=== PATIENT | female | born 1995 | race Caucasian/White ===

== ENCOUNTER 2017-02-09 05:06 | Inpatient (IN) | payer BC ==
[2017-02-09] MEDS ORDERED: Lidocaine 1% 50 ML MDV INJECT PRN (05:22)
[2017-02-09] MEDS ORDERED: Sodium Chloride 0.9% 10 ML Syringe FLUSH PRN (05:22)
[2017-02-09] MEDS ORDERED: Sodium Chloride 0.9% 2.5 ML Syringe FLUSH PRN (05:22)
[2017-02-09] MEDS ORDERED: Misoprostol 200 MCG Tab PO PRN (05:22)
[2017-02-09] MEDS ORDERED: Methylergonovine 0.2 MG/1 ML Amp IM PRN (05:22)
[2017-02-09] MEDS ORDERED: Carboprost Tromethamine 250 MCG/1 ML Amp IM PRN (05:22)
[2017-02-09] MEDS ORDERED: Terbutaline 1 MG/ML SDV SUBCUT PRN (05:22)
[2017-02-09] MEDS ORDERED: Water For Irrigation,Sterile 1,000 ML Container IRR PRN (05:22)
[2017-02-09] MEDS ORDERED: Butorphanol 1 MG/ML SDV IVPUSH PRN (05:22)
[2017-02-09] MEDS ORDERED: Oxytocin/Lactated Ringers 30 UNIT/500 ML BAG IV SCH ×2 (05:30)
[2017-02-09] MEDS: Lactated Ringers 1,000 ML IV SCH ×4 (05:51→12:34)
[2017-02-09] MEDS ORDERED: fentaNYL 100 MCG/2 ML SDV ONE (11:14)
[2017-02-09] MEDS ORDERED: Ropivacaine HCl/PF 100 ML ONE (11:14)
--- NOTE | 2017-02-09 11:42 | PCM.PREANE ---
Preanesthetic Assessment - Anesthesia/Transfusion/Family Hx Anesthesia History: Prior Anesthesia Without Reaction Transfusion History: No Prior Transfusion(s) - Review of Systems General: No Symptoms Pulmonary: No Symptoms Cardiovascular: No Symptoms Gastrointestinal: No symptoms Neurological: No Symptoms Other: Reports: None - Physical Assessment Height: 5 ft 3 in Weight: 165 lb ASA Class: 1 Mental Status: Alert & Oriented x3 Airway Class: Mallampati = 2 Dentition: Reports: Normal Dentition Thyro-Mental Finger Breadths: 3 Mouth Opening Finger Breadths: 3 ROM/Head Extension: Full Lungs: Clear to auscultation, Normal respiratory effort Cardiovascular: Regular Rate, Regular Rhythm - Lab Values: Laboratory Last Values WBC 10.29 K/uL (4.0-11.0) 02/09/17 05:45 RBC 4.74 M/uL (4.30-5.90) 02/09/17 05:45 Hgb 13.1 g/dL (12.0-16.0) 02/09/17 05:45 Hct 39.5 % (36.0-46.0) 02/09/17 05:45 MCV 83.3 fL (80.0-98.0) 02/09/17 05:45 MCH 27.6 pg (27.0-32.0) 02/09/17 05:45 MCHC 33.2 g/dL (31.0-37.0) 02/09/17 05:45 RDW Std Deviation 41.9 fl (28.0-62.0) 02/09/17 05:45 RDW Coeff of Herb 14 % (11.0-15.0) 02/09/17 05:45 Plt Count 185 K/uL (150-400) 02/09/17 05:45 MPV 10.40 fL (7.40-12.00) 02/09/17 05:45 Nucleated RBC % 0.0 /100WBC 02/09/17 05:45 Nucleated RBCs # 0 K/uL 02/09/17 05:45 Urine Color YELLOW 02/09/17 08:15 Urine Appearance CLEAR 02/09/17 08:15 Urine pH 6.5 (5.0-8.0) 02/09/17 08:15 Ur Specific [place] 1.020 (1.001-1.035) 02/09/17 08:15 Urine Protein NEGATIVE mg/dL (NEGATIVE) 02/09/17 08:15 Urine Glucose (UA) NEGATIVE mg/dL (NEGATIVE) 02/09/17 08:15 Urine Ketones NEGATIVE mg/dL (NEGATIVE) 02/09/17 08:15 Urine Occult Blood NEGATIVE (NEGATIVE) 02/09/17 08:15 Urine Nitrite NEGATIVE (NEGATIVE) 02/09/17 08:15 Urine Bilirubin NEGATIVE (NEGATIVE) 02/09/17 08:15 Urine Urobilinogen 0.2 EU/dL (<2.0) 02/09/17 08:15 Ur Leukocyte Esterase NEGATIVE (NEGATIVE) 02/09/17 08:15 Urine RBC 0-1 (0-2/HPF) 02/09/17 08:15 Urine WBC 0-1 (0-5/HPF) 02/09/17 08:15 Ur Epithelial Cells RARE (NONE-FEW) 02/09/17 08:15 Urine Bacteria RARE (NEGATIVE) 02/09/17 08:15 Blood Type AB POSITIVE 02/09/17 05:45 Antibody Screen NEGATIVE 02/09/17 05:45 - Allergies Allergies/Adverse Reactions: Allergies Allergy/AdvReac Type Severity Reaction Status Date / Time red dye Allergy Vomiting Verified 08/07/14 13:34 - Blood Blood Available: No Product(s) Available: None - Anesthesia Plan Free Text/Narrative:: Labor Epidural Pre-Op Medication Ordered: None - Acknowledgements Anesthesia Type Planned: Epidural Pt an Appropriate Candidate for the Planned Anesthesia: Yes Alternatives and Risks of Anesthesia Discussed w Pt/Guardian: Yes Pt/Guardian Understands and Agrees with Anesthesia Plan: Yes 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: Musculoskeletal History: Reports: Other (See Below) (some back pain and sees a chiropracter occasionally) - Past Surgical History HEENT Surgical History: Reports: Other (See Below) Other HEENT Surgeries/Procedures: wisdom tooth extraction GI Surgical History: Reports: Appendectomy - SUBSTANCE USE Smoking Status *Q: Former Smoker Tobacco Use Within Last Twelve Months: No Second Hand Smoke Exposure: No Recreational Drug Use History: No - HOME MEDS Home Medications: Home Meds Norethindrone [Nae] 08/07/14 [History] - CURRENT (IN HOUSE) MEDS Current Meds: Current Medications Butorphanol Tartrate (Stadol) 1 mg IVPUSH ASDIRECTED PRN PRN Reason: Pain Carboprost Tromethamine (Hemabate Ds) 250 mcg IM ASDIRECTED PRN PRN Reason: Post Hemorrhage Lactated Ringer's (Ringers, Lactated) 1,000 mls @ 150 mls/hr IV ASDIRECTED ROXANE Last Admin: 02/09/17 11:14 Dose: 150 mls/hr Oxytocin/Lactated Ringer's (Pitocin In Lr 30 Units/500 Ml) 30 unit in 500 mls @ 2 mls/hr IV TITRATE ROXANE; 2 MUNITS/MIN PRN Reason: Protocol Last Titration: 02/09/17 10:22 Dose: 18 munits/min, 18 mls/hr Lidocaine HCl (Xylocaine 1%) 50 ml INJECT .ONCE PRN PRN Reason: Laceration repair Methylergonovine Maleate (Methergine) 0.2 mg IM ASDIRECTED PRN PRN Reason: Post Hemorrhage Misoprostol (Cytotec) 200 mcg PO .ONCE PRN PRN Reason: Post Hemorrhage Sodium Chloride (Saline Flush) 10 ml FLUSH ASDIRECTED PRN PRN Reason: Keep Vein Open Sodium Chloride (Saline Flush) 2.5 ml FLUSH ASDIRECTED PRN PRN Reason: Keep Vein Open Sterile Water (Sterile Water For Irrigation) 1,000 ml IRR ASDIRECTED PRN PRN Reason: delivery Terbutaline Sulfate (Brethine) 0.25 mg SUBCUT ASDIRECTED PRN PRN Reason: Tacysystole Discontinued Medications Fentanyl (Sublimaze) Confirm Administered Dose 100 mcg .ROUTE .STK-MED ONE Stop: 02/09/17 11:15 Oxytocin/Lactated Ringer's (Pitocin In Lr 30 Units/500 Ml) 30 unit in 500 mls @ 999 mls/hr IV ASDIRECTED ROXANE PRN Reason: 999 MUNITS/MIN Stop: 02/09/17 06:01 Ropivacaine (Naropin 0.2%) Confirm Administered Dose 100 mls @ as directed .ROUTE .STK-MED ONE Stop: 02/09/17 11:15
[2017-02-09] MEDS ORDERED: oxyCODONE 5 MG Tab PO PRN (15:04)
[2017-02-09] MEDS ORDERED: Bisacodyl 10 MG Supp RECTAL PRN (15:04)
[2017-02-09] MEDS ORDERED: Benzocaine/Menthol 20%-0.5% Spray 78 GM Cannister TOP PRN (15:04)
[2017-02-09] MEDS ORDERED: Lanolin 100% Cream 7 GM Tube TOP PRN (15:04)
[2017-02-09] MEDS ORDERED: Ibuprofen 400 MG Tab PO PRN (15:04)
[2017-02-09] MEDS ORDERED: Witch Hazel Medicated Pads 40/Jar TOP PRN (15:04)
[2017-02-09] MEDS ORDERED: Docusate Sodium 100 MG Cap PO PRN (15:04)
--- NOTE | 2017-02-09 17:02 | PCM48HPAN ---
Post Anesthesia Note - EVALUATION WITHIN 48HRS OF ANESTHETIC Vital Signs in Normal Range: Yes Patient Participated in Evaluation: Yes Respiratory Function Stable: Yes Airway Patent: Yes Cardiovascular Function Stable: Yes Hydration Status Stable: Yes Pain Control Satisfactory: Yes Nausea and Vomiting Control Satisfactory: Yes Mental Status Recovered: Yes
[2017-02-09] MEDS: Ibuprofen 800 MG Tab PO PRN (17:29)
[2017-02-09] MEDS: Acetaminophen 500 MG Tab PO PRN (21:10)
--- NOTE | 2017-02-09 23:23 | OR ---
SURGEON: Belem Doll M.D. DATE OF PROCEDURE: 02/09/2017 Delivery note. PREOPERATIVE DIAGNOSES: 1. Forty week intrauterine . 2. Elective induction of labor. POSTOPERATIVE DIAGNOSES: 1. Forty week intrauterine . 2. Elective induction of labor. PROCEDURE: Spontaneous vaginal delivery, first-degree midline laceration repaired. ANESTHESIA: Epidural. COMPLICATIONS: None. ESTIMATED BLOOD LOSS: 300 mL. FINDINGS: Term male, score 8 at 1 minute, 9 at 5 minute. Weight of 3320 g. Spontaneous delivery, intact placenta, 3-vessel cord. DISPOSITION: Infant to nursery, mom in LDRP, stable. DESCRIPTION OF PROCEDURE: Jo is a 21-year-old, G2, P1, at 40 weeks' gestational age, who presented on the morning of 02/09/2017 for elective induction of labor due to term gestation. On initial examination, she was found to be 2 cm, 60% effaced, -3 station. She was admitted, routine labs were drawn. IV hydration was initiated. NST reactive, category one heart tones, therefore, she was initiated on Pitocin. Shortly after 10:00 a.m., the patient underwent amniotomy, clear fluid was returned. She became increasingly uncomfortable, underwent regional anesthesia in the from of epidural, became more comfortable. Shortly before 1:00 p.m., she was found to be 4 to 5 cm, 80% effaced, -2 station. heart tones 140 with variability and within approximately 1 and 1-1/2 hour, she was able to progress to complete 100% effaced, +3 station. I was called for delivery. Upon my arrival, the patient was placed in modified dorsal lithotomy position. She was prepped and draped in the usual aseptic manner. With the next contraction, able to push and deliver infant's head atraumatically, spontaneously, followed by anterior shoulder, posterior shoulder, main body without difficulty. The 's oropharynx and nares bulb suctioned. Cord was clamped x2 and cut. was handed off to his mother with attending nursing staff at her side. Cord arterial, cord venous, cord blood sampling was obtained. Light suprapubic pressure was applied while 30 units of Pitocin was delivered in 500 mL of IV fluid. Upon inspection of cervix, vaginal sidewalls, and perineum, there was found to be a first-degree midline laceration repaired using 2-0 Caprosyn in the usual fashion. Hemostasis appears evident. Uterus remained firm. Sponge count and needle count was correct. The patient remained in LDRP. in nursery. NINOSKA / SUMNA /[id number]
[2017-02-10] MEDS: Ibuprofen 800 MG Tab PO PRN ×3 (02:21→17:55)
[2017-02-10] MEDS: Acetaminophen 500 MG Tab PO PRN ×3 (08:35→22:01)
--- NOTE | 2017-02-10 09:18 | PCM.PNPP ---
- General Info Date of Service: 02/10/17 Functional Status: Reports: pain controlled, tolerating diet, ambulating, urinating - Review of Systems General: Denies: Fever, Weakness Pulmonary: Denies: shortness of breath Cardiovascular: Denies: Chest Pain, Palpitations, Lightheadedness Gastrointestinal: Denies: Abdominal pain, Nausea, Vomiting Genitourinary: Denies: flank pain Neurological: Reports: No Symptoms Psychiatric: Reports: no symptoms - General Info Date of Service: 02/10/17 - Patient Data Vital Signs - most recent: Last Vital Signs Temp 36.6 C 02/10/17 08:30 Pulse 95 02/10/17 08:30 Resp 18 02/10/17 08:30 BP 119/58 L 02/10/17 08:30 Pulse Ox 97 02/10/17 04:19 Weight - most recent: 74.843 kg Lab Results - last 24 hrs: Laboratory Results - last 24 hr 02/10/17 Range/Units 05:12 Hgb 11.5 L (12.0-16.0) g/dL Hct 34.8 L (36.0-46.0) % Med Orders - Current: Current Medications Acetaminophen (Tylenol Extra Strength) 500 mg PO Q4H PRN PRN Reason: Pain Last Admin: 02/09/17 21:10 Dose: 500 mg Acetaminophen (Tylenol Extra Strength) 1,000 mg PO Q4H PRN PRN Reason: Pain Last Admin: 02/10/17 08:35 Dose: 1,000 mg Benzocaine/Menthol (Dermoplast Pain Relief 20%-0.5% [place]) 78 gm TOP ASDIRECTED PRN PRN Reason: Perineal Comfort Measure Last Admin: 02/09/17 17:28 Dose: 1 applic Bisacodyl (Dulcolax) 10 mg RECTAL .ONCE PRN PRN Reason: Constipation Carboprost Tromethamine (Hemabate Ds) 250 mcg IM ASDIRECTED PRN PRN Reason: Post Hemorrhage Docusate Sodium (Colace) 100 mg PO BID PRN PRN Reason: Constipation Last Admin: 02/10/17 08:35 Dose: 100 mg Emollient Ointment (Lansinoh Hpa) 0 gm TOP ASDIRECTED PRN PRN Reason: Sore Nipples Last Admin: 02/09/17 17:28 Dose: 1 applic Lactated Ringer's (Ringers, Lactated) 1,000 mls @ 150 mls/hr IV ASDIRECTED ROXANE Last Admin: 02/09/17 12:34 Dose: 150 mls/hr Oxytocin/Lactated Ringer's (Pitocin In Lr 30 Units/500 Ml) 30 unit in 500 mls @ 2 mls/hr IV TITRATE ROXANE; 2 MUNITS/MIN PRN Reason: Protocol Last Titration: 02/09/17 12:38 Dose: 22 munits/min, 22 mls/hr Ibuprofen (Motrin) 400 mg PO Q4H PRN PRN Reason: Pain Ibuprofen (Motrin) 800 mg PO Q6H PRN PRN Reason: Pain Last Admin: 02/10/17 02:21 Dose: 800 mg Methylergonovine Maleate (Methergine) 0.2 mg IM ASDIRECTED PRN PRN Reason: Post Hemorrhage Oxycodone HCl (Oxycodone) 5 mg PO Q2H PRN PRN Reason: Pain Sodium Chloride (Saline Flush) 10 ml FLUSH ASDIRECTED PRN PRN Reason: Keep Vein Open Sodium Chloride (Saline Flush) 2.5 ml FLUSH ASDIRECTED PRN PRN Reason: Keep Vein Open Witch Lilia (Tucks) 1 pad TOP ASDIRECTED PRN PRN Reason: comfort care Last Admin: 02/09/17 17:28 Dose: 1 applic Discontinued Medications Butorphanol Tartrate (Stadol) 1 mg IVPUSH ASDIRECTED PRN PRN Reason: Pain Fentanyl (Sublimaze) Confirm Administered Dose 100 mcg .ROUTE .STK-MED ONE Stop: 02/09/17 11:15 Oxytocin/Lactated Ringer's (Pitocin In Lr 30 Units/500 Ml) 30 unit in 500 mls @ 999 mls/hr IV ASDIRECTED ROXANE PRN Reason: 999 MUNITS/MIN Stop: 02/09/17 06:01 Ropivacaine (Naropin 0.2%) Confirm Administered Dose 100 mls @ as directed .ROUTE .STK-MED ONE Stop: 02/09/17 11:15 Lidocaine HCl (Xylocaine 1%) 50 ml INJECT .ONCE PRN PRN Reason: Laceration repair Misoprostol (Cytotec) 200 mcg PO .ONCE PRN PRN Reason: Post Hemorrhage Sterile Water (Sterile Water For Irrigation) 1,000 ml IRR ASDIRECTED PRN PRN Reason: delivery Last Admin: 02/09/17 15:08 Dose: 1,000 ml Terbutaline Sulfate (Brethine) 0.25 mg SUBCUT ASDIRECTED PRN PRN Reason: Tacysystole - Infant Interaction Infant Feeding: Attempted ; Nursed Fair/Poor Support Person: Significant Other - Recovery Exam Fundal Tone: Firm Fundal Level: At Umbilicus Fundal Placement: Midline Lochia Amount: Scant Lochia Color: Rubra/Red Perineum Description: Intact, Minimal Bruising/Swelling Episiotomy/Laceration: Approximated Bladder Status: Voiding Urinary Elimination: Voided - Exam General: alert, oriented Lungs: Normal respiratory effort Cardiovascular: Regular Rate, Regular Rhythm GI/Abdominal Exam: Soft, Non-Tender Extremities: Pedal Edema (trace) Skin: warm Psy/Mental Status: alert, normal affect - Problem List & Annotations (1) Vaginal delivery SNOMED Code(s): 683896194 Code(s): O80 - ENCOUNTER FOR FULL-TERM UNCOMPLICATED DELIVERY Status: Acute Current Visit: Yes - Problem List Review Problem List Initiated/Reviewed/Updated: Yes - My Orders Last 24 Hours: My Active Orders 02/09/17 15:04 May Shower [RC] ASDIRECTED Up ad Juhi [RC] ASDIRECTED Vital Signs [RC] PER UNIT ROUTINE Acetaminophen [Tylenol Extra Strength] 1,000 mg PO Q4H PRN Acetaminophen [Tylenol Extra Strength] 500 mg PO Q4H PRN Benzocaine/Menthol [Dermoplast Pain Relief 20%-0.5% [place]] 78 gm TOP ASDIRECTED PRN Bisacodyl [Dulcolax] 10 mg RECTAL .ONCE PRN Docusate Sodium [Colace] 100 mg PO BID PRN Ibuprofen [Motrin] 400 mg PO Q4H PRN Ibuprofen [Motrin] 800 mg PO Q6H PRN Lanolin [Lansinoh HPA] See Dose Instructions TOP ASDIRECTED PRN Witch Lilia [Tucks] 1 pad TOP ASDIRECTED PRN oxyCODONE 5 mg PO Q2H PRN Assess Lochia [WOMSER] Per Unit Routine Assess Uterine Involution [WOMSER] Per Unit Routine Ice Therapy [OM.PC] Per Unit Routine Perineal Care [OM.PC] Per Unit Routine Peripheral IV Discontinue [OM.PC] Routine Sitz Bath [OM.PC] Per Unit Routine 02/09/17 Dinner Regular Diet [DIET] - Assessment Assessment:: PPD 1 status post - Plan Plan:: Continue PP cares, is not feeding well--so will monitor today and plan discharge tomorrow.
[2017-02-11] MEDS: Ibuprofen 800 MG Tab PO PRN ×2 (01:46→12:34)
--- NOTE | 2017-02-11 08:14 | PCM.PNPP ---
- General Info Date of Service: 02/11/17 Functional Status: Reports: Pain Controlled, Tolerating Diet, Ambulating, Urinating - Review of Systems General: Denies: Fever, Weakness, Fatigue Pulmonary: Denies: Shortness of Breath, Pleuritic Chest Pain, Cough Cardiovascular: Denies: Chest Pain, Palpitations, Dyspnea on Exertion Gastrointestinal: Denies: Abdominal Pain Genitourinary: Denies: Dysuria Psychiatric: Reports: No Symptoms - General Info Date of Service: 02/11/17 - Patient Data Vital Signs - most recent: Last Vital Signs Temp 37.0 C 02/11/17 04:00 Pulse 79 02/11/17 04:00 Resp 14 02/11/17 04:00 BP 115/70 02/11/17 04:00 Pulse Ox 98 02/11/17 04:00 Weight - most recent: 74.843 kg Med Orders - Current: Current Medications Acetaminophen (Tylenol Extra Strength) 500 mg PO Q4H PRN PRN Reason: Pain Last Admin: 02/09/17 21:10 Dose: 500 mg Acetaminophen (Tylenol Extra Strength) 1,000 mg PO Q4H PRN PRN Reason: Pain Last Admin: 02/10/17 22:01 Dose: 1,000 mg Benzocaine/Menthol (Dermoplast Pain Relief 20%-0.5% [place]) 78 gm TOP ASDIRECTED PRN PRN Reason: Perineal Comfort Measure Last Admin: 02/09/17 17:28 Dose: 1 applic Bisacodyl (Dulcolax) 10 mg RECTAL .ONCE PRN PRN Reason: Constipation Carboprost Tromethamine (Hemabate Ds) 250 mcg IM ASDIRECTED PRN PRN Reason: Post Hemorrhage Docusate Sodium (Colace) 100 mg PO BID PRN PRN Reason: Constipation Last Admin: 02/10/17 08:35 Dose: 100 mg Emollient Ointment (Lansinoh Hpa) 0 gm TOP ASDIRECTED PRN PRN Reason: Sore Nipples Last Admin: 02/09/17 17:28 Dose: 1 applic Lactated Ringer's (Ringers, Lactated) 1,000 mls @ 150 mls/hr IV ASDIRECTED ROXANE Last Admin: 02/09/17 12:34 Dose: 150 mls/hr Oxytocin/Lactated Ringer's (Pitocin In Lr 30 Units/500 Ml) 30 unit in 500 mls @ 2 mls/hr IV TITRATE ROXANE; 2 MUNITS/MIN PRN Reason: Protocol Last Titration: 02/09/17 12:38 Dose: 22 munits/min, 22 mls/hr Ibuprofen (Motrin) 400 mg PO Q4H PRN PRN Reason: Pain Ibuprofen (Motrin) 800 mg PO Q6H PRN PRN Reason: Pain Last Admin: 02/11/17 01:46 Dose: 800 mg Methylergonovine Maleate (Methergine) 0.2 mg IM ASDIRECTED PRN PRN Reason: Post Hemorrhage Oxycodone HCl (Oxycodone) 5 mg PO Q2H PRN PRN Reason: Pain Sodium Chloride (Saline Flush) 10 ml FLUSH ASDIRECTED PRN PRN Reason: Keep Vein Open Sodium Chloride (Saline Flush) 2.5 ml FLUSH ASDIRECTED PRN PRN Reason: Keep Vein Open Witch Lilia (Tucks) 1 pad TOP ASDIRECTED PRN PRN Reason: comfort care Last Admin: 02/09/17 17:28 Dose: 1 applic Discontinued Medications Butorphanol Tartrate (Stadol) 1 mg IVPUSH ASDIRECTED PRN PRN Reason: Pain Fentanyl (Sublimaze) Confirm Administered Dose 100 mcg .ROUTE .STCarrot.mx-MED ONE Stop: 02/09/17 11:15 Last Admin: 02/10/17 11:48 Dose: Not Given Oxytocin/Lactated Ringer's (Pitocin In Lr 30 Units/500 Ml) 30 unit in 500 mls @ 999 mls/hr IV ASDIRECTED ROXANE PRN Reason: 999 MUNITS/MIN Stop: 02/09/17 06:01 Last Admin: 02/10/17 11:48 Dose: Not Given Ropivacaine (Naropin 0.2%) Confirm Administered Dose 100 mls @ as directed .ROUTE .STK-MED ONE Stop: 02/09/17 11:15 Last Admin: 02/10/17 11:48 Dose: Not Given Lidocaine HCl (Xylocaine 1%) 50 ml INJECT .ONCE PRN PRN Reason: Laceration repair Misoprostol (Cytotec) 200 mcg PO .ONCE PRN PRN Reason: Post Hemorrhage Sterile Water (Sterile Water For Irrigation) 1,000 ml IRR ASDIRECTED PRN PRN Reason: delivery Last Admin: 02/09/17 15:08 Dose: 1,000 ml Terbutaline Sulfate (Brethine) 0.25 mg SUBCUT ASDIRECTED PRN PRN Reason: Tacysystole - Infant Interaction Infant Disposition, : in Room with Family Infant Interaction: Holding Infant Feeding: Attempted ; Nursed Fair/Poor Support Person: Significant Other - Recovery Exam Fundal Tone: Firm Fundal Level: At Umbilicus Fundal Placement: Midline Lochia Amount: Scant Lochia Color: Rubra/Red Perineum Description: Other (see below) Other Perinuem Description: 1st degree lac Episiotomy/Laceration: Approximated Bladder Status: Voiding Urinary Elimination: Voided - Exam General: alert, oriented Neck: supple Lungs: Clear to Auscultation, Normal Respiratory Effort Cardiovascular: Regular Rate, Regular Rhythm GI/Abdominal Exam: Normal Bowel Sounds, Soft, Non-Tender, No Organomegaly, No Distention, No Abnormal Bruit, No Mass, Pelvis Stable Extremities: Pedal Edema (trace) Psy/Mental Status: alert, normal affect, normal mood - Problem List & Annotations (1) Vaginal delivery SNOMED Code(s): 974080975 Code(s): O80 - ENCOUNTER FOR FULL-TERM UNCOMPLICATED DELIVERY Status: Acute Current Visit: Yes - Problem List Review Problem List Initiated/Reviewed/Updated: Yes - Assessment Assessment:: PPD 2 status post . Minimal pain and lochia. nursed well yesterday. Discharge home today. - Plan Plan:: Discharge home today. Nothing in the vagina for 6 weeks. Continue PNV while breast feeding. Can use OTC ibuprofen/tylenol as needed for pain. Instructed patient to call if she develops fever greater than 101 or bleeding through a large pad an hour. F/U with [facility] n 6 weeks.
[2017-02-11] MEDS: Acetaminophen 500 MG Tab PO PRN (08:34)
[2017-02-11 08:41] VITALS: BP 116/57
== END 2017-02-11 13:10 | disposition home or self-care (01) | DRG 560 ==
LOC: MW.OB 05:06 → OBSVTOIN 14:23
PROVIDERS: ADMIT Obstetrics & Gynecology; ATTEND Obstetrics & Gynecology
PROC: 10E0XZZ Delivery of Products of Conception, External Approach (ICD-10-PCS; principal; 2017-02-09)
PROC: 3E033VJ Introduction of Other Hormone into Peripheral Vein, Percutaneous Approach (ICD-10-PCS; 2017-02-09)
PROC: 0HQ9XZZ Repair Perineum Skin, External Approach (ICD-10-PCS; 2017-02-09)
DX: O70.0 First degree perineal laceration during delivery (principal); Z3A.40 40 weeks gestation of pregnancy; Z37.0 Single live birth
CPT/HCPCS: 36415; 51703; 59025; 81001; 85014; 85018; 85027; 86850; 86900; 86901; A9270-GY; J7120

== ENCOUNTER 2017-05-17 19:38 | Emergency (ER) | payer BC ==
[2017-05-17] MEDS ORDERED: Ondansetron 4 MG/2 ML SDV IVPUSH ONE (20:06)
[2017-05-17] MEDS ORDERED: Ketorolac 30 MG/ML SDV IVPUSH ONE (20:06)
[2017-05-17] MEDS ORDERED: diphenhydrAMINE 50 MG/ML SDV IVPUSH ONE (20:06)
[2017-05-17] MEDS ORDERED: Sodium Chloride 0.9% 1,000 ML IV ONE (20:06)
--- NOTE | 2017-05-17 20:18 | EDM.PDOC ---
ED HPI GENERAL MEDICAL PROBLEM - General Chief Complaint: Headache Stated Complaint: PT CAN NOT SEE OUT OF RT EYE Time Seen by Provider: 05/17/17 19:42 Source of Information: Reports: Patient History Limitations: Reports: No Limitations - History of Present Illness INITIAL COMMENTS - FREE TEXT/NARRATIVE: HISTORY AND PHYSICAL: History of present illness: Patient is a 22-year-old female who presents to the emergency room today with complaints of migraine headache. States that her migraine started at approximately 4:30 this evening and had sudden onset of blurred vision to the right eye. Describes pain as pressure around the temples. This was accompanied with nausea, vomiting, light and noise sensitivity. States that the blurred vision has improved but still has her headache. Patient has a past history of headaches, stating she has had 3 within the last month. Prior to that hadn't had one for 3 years. She usually is able to "sleep it off and wake up without any pain". Did not take anything [id number] or prescribed for this today. Denies any chest pain, shortness of breath, fever or chills. Denies any neck pain, abdominal pain, diarrhea. Denies any syncope. Denies any recent head injury or trauma. Review of systems: As per history of present illness and below otherwise all systems reviewed and negative. Past medical history: As per history of present illness and as reviewed below otherwise noncontributory. Surgical history: As per history of present illness and as reviewed below otherwise noncontributory. Social history: No reported history of drug or alcohol abuse. Family history: As per history of present illness and as reviewed below otherwise noncontributory. Physical exam: Gen.: Well-developed and well-nourished 22-year-old female. Able to speak in full sentences without shortness of breath. Nontoxic. Alert and oriented. HEENT: Atraumatic, normocephalic, pupils equal and reactive bilaterally, negative for conjunctival pallor or scleral icterus, mucous membranes moist, throat clear, neck supple, nontender, trachea midline. No temporal tenderness with palpation. Lungs: Clear to auscultation, breath sounds equal bilaterally, chest nontender. Heart: S1S2, regular, negative for clicks, rubs, or JVD. Abdomen: Soft, nondistended, nontender. Negative for masses or hepatosplenomegaly. Negative for costovertebral tenderness. Pelvis: Stable nontender. Genitourinary: Deferred. Rectal: Deferred. Extremities: Atraumatic, moves all per self, negative for cords or calf pain. Neurovascular unremarkable. Neuro: Awake, alert, oriented. Cranial nerves II through XII unremarkable. Cerebellum unremarkable. Motor and sensory unremarkable throughout. Exam nonfocal. Risks vs benefits of a head CT at this time were discussed, patient is requesting a head CT for "ease my mind". IV fluid and medications have been ordered. She does have a ride home, her . Diagnostics: CBC, CMP, ESR, CT head Therapeutics: IV fluid, Toradol, Benadryl Impression: Tension Type -Headache Plan: 1. Please take the rest of the evening to rest in a quiet dark room. 2. You may want to follow-up with the primary care provider for further evaluation of your migraines. 3. Return to the ED as needed and as discussed. Definitive disposition and diagnosis as appropriate pending reevaluation and review of above. Onset: Today head Pain Score (Numeric/FACES): 7 - Related Data Allergies Allergy/AdvReac Type Severity Reaction Status Date / Time red dye Allergy Vomiting Verified 05/17/17 19:44 Home Meds: Home Meds . 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: Musculoskeletal History: Reports: Other (See Below) - Past Surgical History HEENT Surgical History: Reports: Other (See Below) Other HEENT Surgeries/Procedures: wisdom tooth extraction GI Surgical History: Reports: Appendectomy Social & Family History - Family History Family Medical History: Noncontributory - Tobacco Use Smoking Status *Q: Never Smoker Used Tobacco, but Quit: Yes Month Tobacco Last Used: Trip shafer Second Hand Smoke Exposure: No - Caffeine Use Caffeine Use: Reports: Coffee, Soda - Recreational Drug Use Recreational Drug Use: No ED ROS GENERAL - Review of Systems Review Of Systems: ROS reveals no pertinent complaints other than HPI. Constitutional: Denies: Fever, Chills, Diaphoresis HEENT: Reports: Vision Change (Resolved). Denies: Eye Pain, Hearing Loss, Throat Pain Cardiovascular: Denies: Chest Pain Endocrine: Denies: Fatigue : Denies: Dysuria Musculoskeletal: Denies: Neck Pain Neurological: Denies: Confusion, Dizziness Hematologic/Lymphatic: Denies: Easy Bleeding, Easy Bruising - Physical Exam Exam: See Below (See dictation) Course - Vital Signs Last Recorded V/S: Last Vital Signs Temp 36.6 C 05/17/17 19:38 Pulse 72 05/17/17 19:38 Resp 18 05/17/17 19:38 BP 100/48 L 05/17/17 19:38 Pulse Ox 98 05/17/17 19:38 - Orders/Labs/Meds Orders: Active Orders 24 hr Category Date Time Status EKG 12 Lead [EKG Documentation Completion] [RC] STAT Care 05/17/17 19:59 Active Head wo Cont [CT] Stat Exams 05/17/17 20:06 Taken Labs: Laboratory Tests 05/17/17 05/17/17 Range/Units 20:20 20:20 WBC 10.56 (4.0-11.0) K/uL RBC 5.31 (4.30-5.90) M/uL Hgb 15.3 (12.0-16.0) g/dL Hct 43.0 (36.0-46.0) % MCV 81.0 (80.0-98.0) fL MCH 28.8 (27.0-32.0) pg MCHC 35.6 (31.0-37.0) g/dL RDW Std Deviation 39.1 (28.0-62.0) fl RDW Coeff of Herb 13 (11.0-15.0) % Plt Count 191 (150-400) K/uL MPV 10.00 (7.40-12.00) fL Neut % (Auto) 78.5 (48.0-80.0) % Lymph % (Auto) 17.6 (16.0-40.0) % Ralls % (Auto) 3.4 (0.0-15.0) % Eos % (Auto) 0.1 (0.0-7.0) % Baso % (Auto) 0.4 (0.0-1.5) % Neut # (Auto) 8.3 H (1.4-5.7) K/uL Lymph # (Auto) 1.9 (0.6-2.4) K/uL Ralls # (Auto) 0.4 (0.0-0.8) K/uL Eos # (Auto) 0.0 (0.0-0.7) K/uL Baso # (Auto) 0.0 (0.0-0.1) K/uL Nucleated RBC % 0.0 /100WBC Nucleated RBCs # 0 K/uL ESR 1 (0-19) mm/hr Sodium 139 (136-146) mmol/L Potassium 4.4 (3.5-5.1) mmol/L Chloride 107 (98-110) mmol/L Carbon Dioxide 22 (21-31) mmol/L BUN 14 (6.0-23.0) mg/dL Creatinine 0.8 (0.6-1.5) mg/dL Est Cr Clr Drug Dosing 90.47 mL/min Estimated GFR (MDRD) > 60.0 ml/min Glucose 94 (60-110) mg/dL Calcium 9.2 (8.8-10.8) mg/dL Total Bilirubin 0.3 (0.1-1.5) mg/dL AST 31 (5-40) IU/L ALT 38 (8-54) IU/L Alkaline Phosphatase 131 (40-150) Total Protein 7.5 (6.0-8.0) g/dL Albumin 4.5 (3.5-5.0) g/dL Globulin 3.0 (2.0-3.5) g/dL Albumin/Globulin Ratio 1.5 (1.3-2.8) Meds: Medications Discontinued Medications Generic Name Dose Route Start Last Admin Trade Name Freq PRN Reason Stop Dose Admin Diphenhydramine HCl 25 mg 05/17/17 20:06 05/17/17 20:33 Benadryl IVPUSH 05/17/17 20:07 25 mg ONETIME ONE Administration Sodium Chloride 1,000 mls @ 999 mls/hr 05/17/17 20:06 05/17/17 20:23 Normal Saline IV 05/17/17 21:06 999 mls/hr STAT ONE Administration Ketorolac Tromethamine 30 mg 05/17/17 20:06 05/17/17 20:31 Toradol IVPUSH 05/17/17 20:07 30 mg ONETIME ONE Administration Ondansetron HCl 4 mg 05/17/17 20:06 05/17/17 20:30 Zofran IVPUSH 05/17/17 20:07 4 mg ONETIME ONE Administration Departure - Departure Time of Disposition: 21:42 Disposition: Home, Self-Care 01 Clinical Impression: Tension-type headache - Discharge Information Referrals: PCP,None [Primary Care Provider] - Forms: ED Department Discharge Additional Instructions: My general discharge The following information is given to patients seen in the emergency department who are being discharged to home. This information is to outline your options for follow-up care. We provide all patients seen in our emergency department with a follow-up referral. The need for follow-up, as well as the timing and circumstances, are variable depending upon the specifics of your emergency department visit. If you don't have a primary care physician on staff, we will provide you with a referral. We always advise you to contact your personal physician following an emergency department visit to inform them of the circumstance of the visit and for follow-up with them and/or the need for any referrals to a consulting specialist. The emergency department will also refer you to a specialist when appropriate. This referral assures that you have the opportunity for follow-up care with a specialist. All of these measure are taken in an effort to provide you with optimal care, which includes your follow-up. Under all circumstances we always encourage you to contact your private physician who remains a resource for coordinating your care. When calling for follow-up care, please make the office aware that this follow-up is from your recent emergency room visit. If for any reason you are refused follow-up, please contact the [facility] Emergency Department at and asked to speak to the emergency department charge nurse. [facility] [address] [place] [id number] 1. Please take the rest of the evening to rest in a quiet dark room. 2. You may want to follow-up with the primary care provider for further evaluation of your migraines. 3. Return to the ED as needed and as discussed. - My Orders Last 24 Hours: My Active Orders 05/17/17 19:59 EKG 12 Lead [EKG Documentation Completion] [RC] STAT 05/17/17 20:06 Head wo Cont [CT] Stat - Assessment/Plan Last 24 Hours: My Active Orders 05/17/17 19:59 EKG 12 Lead [EKG Documentation Completion] [RC] STAT 05/17/17 20:06 Head wo Cont [CT] Stat
[2017-05-17 20:49] LABS: CHLORIDE,CL 107 mmol/L (98-110); SODIUM,NA 139 mmol/L (136-146)
[2017-05-17 22:20] VITALS: BP 94/47
--- NOTE | 2017-05-18 10:12 | CT ---
EXAM DATE: 05/17/17 PATIENT'S AGE: 22 Patient: DAMIAN MERCADO Facility: [place], [place] Site . Site : 1995 Study: CT Head [id number] 9:29:19 PM Ordering Physician: Doctor Fontana Final Report: INDICATION: Headache. TECHNIQUE: CT head without i.v. contrast. COMPARISON: Prior head CT dated 08/07/2014. FINDINGS: CSF spaces: Within normal limits for age. Brain parenchyma: The brain parenchyma is normal in appearance with preservation of the an-white differentiation. No sign of mass, hemorrhage, or midline shift seen. Skull base and calvarium: The visualized paranasal sinuses are well aerated. The mastoid air cells are clear. The visualized orbits are grossly unremarkable. No skull fractures are seen. IMPRESSION: 1. Negative head CT. Dictated by Kelton Garcia MD @ 05/17/2017 10:01:18 PM Dictated by: Kelton Garcia MD @ 05/17/2017 22:01:25 (Electronic Signature) Report Signed by Proxy. [facility]
== END 2017-05-17 22:15 | disposition home or self-care (01) ==
LOC: MW.ED 19:38
DX: G44.209 Tension-type headache, unspecified, not intractable (principal)
CPT/HCPCS: 70450; 80053; 85025; 85652; 93005; 96361; 96374; 96375; 99284; J1200; J1885; J2405; J7040; 99283